=== PATIENT | female | born 1995 | race Caucasian/White ===

== ENCOUNTER → 2019-08-06 16:53 | Outpatient (BNVA) | payer MEDICAID, SELFPAY | PROVIDERS: Family Provider Family Medicine; Visit Provider Emergency Medicine | DX: R10.9 Unspecified abdominal pain (principal); R14.0 Abdominal distension (gaseous); R53.83 Other fatigue; Z83.3 Family history of diabetes mellitus; R10.84 Generalized abdominal pain | CPT/HCPCS: 80053; 82652; 83036; 83690; 84443; 85025 ==

== ENCOUNTER 2019-09-04 08:10 | Outpatient (CLI) | payer MEDICAID, SELFPAY ==
--- NOTE | 2019-09-04 08:00 | US_ITS ---
WS: [id number] RIGHT UPPER QUADRANT ULTRASOUND HISTORY: abdominal pain and bloating COMPARISON: None available. Liver: 12.1 cm in length. Normal size and echogenicity with no intrahepatic dilatation. No mass. Gallbladder: Prior cholecystectomy. CBD: 0.6 cm Pancreas: Normal size and echogenicity. Right kidney: 10.7 cm in length. Normal echogenicity with no mass or hydronephrosis. Aorta and IVC: Unremarkable. No ascites. US/US abdomen limited [id number] IMPRESSION: 1. Prior cholecystectomy. 2. Otherwise negative.
== END 2019-09-04 08:11 | disposition home or self-care (01) ==
PROVIDERS: Family Provider Family Medicine; Visit Provider Emergency Medicine
DX: R10.9 Unspecified abdominal pain (principal); R14.0 Abdominal distension (gaseous)
CPT/HCPCS: 76705

== ENCOUNTER → 2020-06-04 14:52 | Outpatient (BNVA) | payer BC, MEDICAID, SELFPAY | PROVIDERS: Family Provider Family Medicine; Visit Provider Emergency Medicine | DX: R10.84 Generalized abdominal pain (principal) | CPT/HCPCS: 81000 ==

== ENCOUNTER → 2022-11-20 13:42 | Outpatient (BNVA) | payer MEDICAID, SELFPAY | PROVIDERS: Family Provider Family Medicine; Visit Provider Nurse Practitioner Family | DX: R10.9 Unspecified abdominal pain (principal); R53.83 Other fatigue; R10.84 Generalized abdominal pain; X58.XXXA Exposure to other specified factors, initial encounter | CPT/HCPCS: 80053; 82150; 83690; 84439; 84443; 84480; 85025 ==

== ENCOUNTER → 2022-11-27 13:29 | Outpatient (BNVA) | payer MEDICAID, SELFPAY | PROVIDERS: Family Provider Family Medicine; Visit Provider Nurse Practitioner | DX: R30.0 Dysuria (principal); N39.0 Urinary tract infection, site not specified | CPT/HCPCS: 81000 ==

== ENCOUNTER → 2023-04-04 15:56 | Outpatient (BNVA) | payer MEDICAID, SELFPAY | PROVIDERS: Family Provider Family Medicine; PCP Nurse Practitioner; Visit Provider Nurse Practitioner | DX: M26.609 Unspecified temporomandibular joint disorder, unspecified side (principal) | CPT/HCPCS: 70100 ==